=== PATIENT | male | born 1965 | race Caucasian/White ===

== ENCOUNTER → 2019-05-02 10:59 | Outpatient (CLI) | payer OTHER, SELFPAY ==
--- NOTE | ~2019-05-02 | CT_ITS ---
EXAMINATION:CT chest w con DATE: 05/02/2019 11:36 INDICATION: Right chest and lower rib pain. TECHNIQUE: Computed tomography (CT) of the chest was performed with 75 mL Omnipaque 350 intravenous c ontrast. Automated exposure control and iterative reconstruction technique were employed. The dose-le ngth product (DLP) was 754.71 mGy-cm. COMPARISON: CT abdomen and pelvis 03/03/2015, chest 2 views 04/10/2019 FINDINGS: The lungs demonstrate mild atelectasis. No pleural effusion. The heart size is normal. No p ericardial effusion. There is cortical thinning of the kidneys. There is a healing fracture of right 10th rib with callus formation. IMPRESSION: 1. Healing fracture of right 10th rib. Reviewed, dictated and finalized at location A. WRITER
[2019-05-02 11:27] LABS: Blood Urea Nitrogen 11 mg/dL (8-26); Estimated Glomerular Filt Rate > 60
== END ==
PROVIDERS: PCP Family Medicine Adolescent Medicine; Visit Provider Family Medicine Adolescent Medicine
DX: R07.89 Other chest pain (principal); S22.31XD Fracture of one rib, right side, subsequent encounter for fracture with routine healing; X58.XXXD Exposure to other specified factors, subsequent encounter
CPT/HCPCS: 71260; Q9967

== ENCOUNTER → 2020-06-18 09:14 | Outpatient (CLI) | payer OTHER, SELFPAY ==
--- NOTE | ~2020-06-18 | XR_ITS ---
EXAMINATION: XR hand RT min 3V, XR wrist RT min 3V DATE: 06/18/2020 09:37 INDICATION: Right hand and wrist pain. Decreased strength at the base of the thumb. Osteoarthritis. TECHNIQUE: 1. Posteroanterior, ulnar deviation, oblique, and lateral views of the right wrist were obtained. 2. Dorsal palmar, oblique and lateral views of the right hand were obtained. COMPARISON: None. FINDINGS: Alignment of the hand and wrist are normal. No fracture identified. Polyarticular osteoarthritis, se tariq at the triscaphe joint and mild at the first carpometacarpal and multiple predominantly distal i nterphalangeal joints. Subarticular lucency likely related to degenerative mild cystic change underly ing the distal articular surface of the ulna. No cortical erosions to suggest an inflammatory arthrit is. Soft tissues are unremarkable. IMPRESSION: 1. 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 Reviewed, dictated and finalized at location B. IMPRESSION: 1. 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
== END ==
PROVIDERS: PCP Family Medicine Adolescent Medicine; Visit Provider Family Medicine Adolescent Medicine
DX: M19.031 Primary osteoarthritis, right wrist (principal); M19.041 Primary osteoarthritis, right hand
CPT/HCPCS: 73110; 73130

== ENCOUNTER → 2022-05-07 07:46 | Outpatient (CLI) | payer OTHER, SELFPAY ==
--- NOTE | ~2022-05-07 | XR_ITS ---
Clinical Indication: Shortness of breath PA and lateral views of the chest: Comparison: 04/10/2019 Findings: The lungs are clear, without evidence of focal consolidation or pleural effusion. Cardiome diastinal silhouette is within normal limits. Bones and soft tissues are unremarkable. Impression: Normal chest. Reviewed, dictated and finalized at [facility]. [employer] [employer]CHIT[employer] Impression: Normal chest.
== END ==
PROVIDERS: PCP Family Medicine Adolescent Medicine; Visit Provider Physician Assistant
DX: R06.02 Shortness of breath (principal)
CPT/HCPCS: 71046